=== PATIENT | male | born 1985 | race Caucasian/White ===

== ENCOUNTER 2018-05-19 02:46 | Emergency (ER) | payer MEDICAID ==
[~2018-05-19] VITALS: Ht 185.4 cm; Wt 74.8 kg
[2018-05-19] MEDS: TETANUS-DIPTH-ACEL PERTUSSIS 0.5ML SYRG IM ONE (03:45)
[2018-05-19] MEDS: LIDOCAINE 1% (LOCAL ANESTH.) PF 5ml SDV ID ONE (05:00)
[2018-05-19] MEDS: SODIUM CHLORIDE 0.9% 1,000 ML IV ONE (06:00)
[2018-05-19] MEDS: ceFAZolin 1GM/50ML 50 ML IV ONE (06:00)
[2018-05-19] MEDS: NEOMYCIN-BACITRACIN-POLYM UNITDOSE PKG TOP OINT TOP ONE (07:25)
[2018-05-19 07:52] VITALS: BP 116/60
== END 2018-05-19 08:58 | disposition home or self-care (01) ==
LOC: EDBD 02:46 → ER 02:55
DX: S02.2XXA Fracture of nasal bones, initial encounter for closed fracture (principal); S09.90XA Unspecified injury of head, initial encounter; F10.920 Alcohol use, unspecified with intoxication, uncomplicated; Y90.0 Blood alcohol level of less than 20 mg/100 ml; Z88.6 Allergy status to analgesic agent; V43.52XA Car driver injured in collision with other type car in traffic accident, initial encounter; Y93.89 Activity, other specified; Y99.8 Other external cause status; Y92.410 Unspecified street and highway as the place of occurrence of the external cause
CPT/HCPCS: 36415; 70450; 70486; 80320; 90471; 90715; 96365; 96366; 99284; J0690

== ENCOUNTER 2019-08-07 15:47 | Emergency (ER) | payer SELFPAY ==
[~2019-08-07] VITALS: Ht 185.4 cm; Wt 79.4 kg
[2019-08-07 17:00] VITALS: BP 149/78
== END 2019-08-07 19:27 | disposition home or self-care (01) ==
LOC: ER 15:48
DX: R05 Cough (principal)